=== PATIENT | male | born 1960 | race Caucasian/White ===

== ENCOUNTER → 2017-06-19 | Outpatient (CLI) | payer OTHER ==
--- NOTE | 2017-06-19 08:40 | DIAGNOSTIC IMAGING REPORT ---
ABDOMINAL ULTRASOUND, SPLEEN CLINICAL HISTORY: Splenomegaly. COMPARISON STUDY: None. FINDINGS: The spleen is enlarged measuring 19 cm in length. No splenic masses or perisplenic fluid collections. IMPRESSION: Splenomegaly measuring 19 cm in length. Electronically signed by: Zac Mccall M.D. 06/19/2017 8:39 AM Dictated Date/Time: 06/19/2017 8:38 AM
== END | disposition home or self-care (01) ==
LOC: C.ULTR 08:12
PROVIDERS: ATTEND Internal Medicine Hematology & Oncology
DX: D61.818 Other pancytopenia (principal); R16.1 Splenomegaly, not elsewhere classified